=== PATIENT | female | born 1965 | race Caucasian/White ===

== ENCOUNTER → 2018-12-19 08:26 | Outpatient (CLI) | payer OTHER, SELFPAY ==
[2018-12-19 10:10] LABS: Cholesterol 244 mg/dL (140-199); HDL Cholesterol 54 mg/dL (40-60); LDL Cholesterol Calculated 145 mg/dL (<100); Triglycerides 223 mg/dL (35-150)
== END ==
PROVIDERS: PCP Physician Assistant; Visit Provider Physician Assistant
DX: Z13.220 Encounter for screening for lipoid disorders (principal); Z13.6 Encounter for screening for cardiovascular disorders; Z82.49 Family history of ischemic heart disease and other diseases of the circulatory system
CPT/HCPCS: 36415; 80061

== ENCOUNTER → 2019-06-12 07:49 | Outpatient (CLI) | payer OTHER, SELFPAY | PROVIDERS: PCP Physician Assistant; Visit Provider Physician Assistant | DX: E78.2 Mixed hyperlipidemia (principal) | CPT/HCPCS: 36415 ==

== ENCOUNTER → 2019-09-19 12:10 | Outpatient (CLI) | payer OTHER, SELFPAY ==
[2019-09-25 09:43] LABS: Fecal Immunochemical Test NOT DETECTED (NOT DETECTED)
== END ==
PROVIDERS: PCP Physician Assistant; Visit Provider Physician Assistant
DX: Z12.11 Encounter for screening for malignant neoplasm of colon (principal)
CPT/HCPCS: 82274

== ENCOUNTER 2021-05-01 07:47 | Emergency (ER) | payer OTHER, SELFPAY ==
--- NOTE | 2021-05-01 07:48 | DI.RAD.S_ITS ---
PROCEDURE: XR CHEST 1V INDICATIONS: chest pain TECHNIQUE: One view of the chest was acquired. COMPARISON: None. FINDINGS: Surgical changes and devices: None. Lungs and pleura: Lungs are clear. No pleural effusions or pneumothorax. Mediastinum: Mediastinal contours appear normal. Heart size is normal. Bones and chest wall: No suspicious bony lesions. Overlying soft tissues appear unremarkable. IMPRESSION: No acute disease. Dictated by: Lambert Chaudhary M.D. on 05/01/2021 at 8:25 Approved by: Lambert Chaudhary M.D. on 05/01/2021 at 8:42
[2021-05-01 08:01] VITALS: BP 159/106; PULSE 68; RESP 16; TEMP 36.3; O2SAT 99; BMI 24.7
--- NOTE | 2021-05-01 08:07 | ED_ITS ---
HPI - Chest Pain General Chief Complaint: Chest Pain Stated Complaint: pain in left arm that goes down to hand, up neck Time Seen by Provider: 05/01/21 08:07 Source: patient and other (Walk-in clinic) Mode of arrival: Wheelchair Limitations: no limitations History of Present Illness HPI narrative: This is a 55-year-old female comes emergency department with complaint of pain in her left arm that goes down her hand and upper neck to. Patient states it started last night about 930. She states that it started at the site of her COVID injection and she started to have an achy sensation that then radiated down her arm and upper neck. She had her COVID vaccination 2 or 3 weeks ago. She had some mild achiness at the site immediately afterwards but that had resolved and she had had any residual symptoms. She denies any radiation to her chest, between her shoulder blades or abdomen. She denies any chest pressure, no shortness of breath. No diaphoresis. No nausea or vomiting. She denies any numbness, weakness or tingling. She denies any headache. No vision changes. No numbness tingling or weakness in any other extremities. She does appreciate that the muscle feels slightly weaker on the left than the right but states that she is able to use it fully. She tried some ibuprofen which was not helpful. She tried heat which was very helpful and ice which made it significantly worse. Patient does not take any other daily medications. She has had a sinus surgery in the past. Patient has allergies to sulfa, no tobacco, rare alcohol, no illicit. Her primary care physician was Erica Hernandez. Patient states her parents have a cardiac history her mom had a heart attack in her mid 70s, her paternal grandfather in his 50s of an SD and her father had 3 MIs the last 1 was in his 80s she is unsure of the onset of the 1st. She has not had similar symptoms in the past. Related Data Home Medications Medication Instructions Recorded Confirmed ibuprofen 200 mg tablet 400 mg PO PRN PRN #0 01/19/18 05/01/21 Previous Rx's Medication Instructions Recorded gabapentin 300 mg capsule 300 mg PO TID #30 cap 05/01/21 Allergies Allergy/AdvReac Type Severity Reaction Status Date / Time Sulfa (Sulfonamide AdvReac Mild SWOLLEN Verified 05/01/21 07:31 Antibiotics) EYELIDS [SULFA (SULFONAMIDE ANTIBIOTICS)] Review of Systems Review of Systems ROS Unobtainable: All systems reviewed & are unremarkable except as noted in HPI and below Patient History Family History Father Age: 83 Heart disease Mother Age: 82 Diabetes mellitus, type 2 Social History Smoking Status: Never smoker second hand exposure: No alcohol intake: current (Advocat only on special occasions.) substance use type: does not use Smoking Status: Never smoker Exam Narrative Exam Narrative: GENERAL: Alert and oriented x three, well-nourished female in mild distress. HEENT: Head normocephalic, atraumatic, EOMI, pupils reactive, face symmetric, moist mucous membranes NECK: Supple, full range of motion, patient has no cervical, thoracic or vertebral tenderness. Patient does have negative Spurling's with increase in symptoms in the left arm with head rotated right an extended period CARDIOVASCULAR: Regular rate and rhythm without murmurs, rubs or gallops. No JVD. RESPIRATORY: Breath sounds equal bilaterally, no wheezes rales or rhonchi. ABDOMEN: Soft, nontender. Normoactive bowel sounds all 4 quadrants. No guarding or rebound, rigidity, no mass : No CVA tenderness EXTREMITIES: Normal range of motion, no clubbing or edema. Neurovascularly intact. Patient has equal squeeze bilaterally, 5/5 muscle strength. 2/4 DTRs in upper extremities. 2+ radial pulses bilaterally. Patient does not have any skin changes. No rashes, no swelling. Patient is nontender to touch. NEUROLOGICAL: Cranial nerves II through XII grossly intact. Moving all extremities SKIN: Warm, dry, no petechiae, no rashes or lesions. Initial Vital Signs Initial Vital Signs: Vital Signs Temperature 97.4 F L 05/01/21 08:01 Pulse Rate 68 05/01/21 08:01 Respiratory Rate 16 05/01/21 08:01 Blood Pressure 159/106 H 05/01/21 08:01 Pulse Oximetry 99 05/01/21 08:01 Scores HEART Score Heart Score history: Moderately Suspicious Heart Score EKG: Normal Heart Score Age: 45-64 years old Heart Score risk factors: 1-2 risk factors Heart Score troponin: < or = to normal limit Heart Score Total: 3 Course Orders Ordered: ED Orders 05/01/21 07:48 XR chest 1V Stat Complete Blood Count AUTO DIFF Stat Comprehensive Metabolic Panel Stat Lipase Stat Troponin & CK Cardiac Panel Stat EKG-12 Lead Stat Vital Signs Vital signs: Vital Signs - 8 hr 05/01/21 08:01 Temperature 97.4 F L Pulse Rate 68 Respiratory Rate 16 Blood Pressure 159/106 H Pulse Oximetry 99 MDM - Chest Pain Lab Data Result diagrams: 05/01/21 08:14 05/01/21 08:14 Labs: Lab Results 05/01/21 05/01/21 Range/Units 08:14 08:14 WBC 5.8 (4.5-11.0) X10^3/uL RBC 4.64 (4.0-5.2) X10^6/uL Hgb 13.6 (12.0-16.0) g/dL Hct 41.1 (36-46) % MCV 88.5 (80-100) fL MCH 29.2 (26-34) PG MCHC 33.0 (30-36) % RDW 14.1 (11.6-14.8) % Plt Count 263 (150-400) X10^3/uL Neut % (Auto) 57.2 (50-75) % Lymph % (Auto) 28.9 (25-40) % [place] % (Auto) 9.9 (3-14) % Eos % (Auto) 3.0 (2-4) % Baso % (Auto) 1.0 (0-2) % Neut # (Auto) 3300 (1305-1461) /uL Lymph # (Auto) 1700 (9943-1136) /uL [place] # (Auto) 600 (0-900) /uL Eos # (Auto) 200 (0-450) /uL Baso # (Auto) 100 (0-100) /uL Sodium 140 (137-145) mmol/L Potassium 3.9 (3.4-5.1) mmol/L Chloride 105 (98-107) mmol/L Carbon Dioxide 28 (22-32) mmol/L BUN 15 (7-17) mg/dL Creatinine 0.83 (0.52-1.04) mg/dL Estimated GFR > 60.0 (>60) mL/min BUN/Creatinine Ratio 18.1 (6-22) Glucose 120 H (70-100) mg/dL Calcium 9.8 (8.4-10.2) mg/dL Total Bilirubin 0.6 (0.2-1.3) mg/dL AST 34 (14-36) IU/L ALT 29 (<35) IU/L Alkaline Phosphatase 98 (38-126) U/L Total Creatine Kinase 120 (30-135) U/L CK-MB (CK-2) 1.05 (<2.37) ng/mL CK-MB (CK-2) Rel Index 0.9 L (1.5-5.0) % Troponin I < 0.012 (0.01-0.034) ng/mL Total Protein 8.4 H (6.3-8.2) g/dL Albumin 4.6 (3.5-5.0) g/dL Globulin 3.8 (1.7-4.1) g/dL Albumin/Globulin Ratio 1.2 (1.0-2.8) Lipase 187 (23-300) U/L Imaging Data Chest x-ray: Radiologist's Impression: [address] [id number] ReportSigned Patient: Rachael Singh CMR#: [id number]: 1965Acct:[id number]/Sex: 55 / FDate of Service: 05/01/21Loc: EDAccession Number: [id number] Procedure: XR chest 1V Ordering Provider: Pilar Hubbard D.O. PROCEDURE: XR CHEST 1V INDICATIONS: chest pain TECHNIQUE: One view of the chest was acquired. COMPARISON: None. FINDINGS: Surgical changes and devices: None. Lungs and pleura: Lungs are clear. No pleural effusions or pneumothorax. Mediastinum: Mediastinal contours appear normal. Heart size is normal. Bones and chest wall: No suspicious bony lesions. Overlying soft tissues appear unremarkable. IMPRESSION: No acute disease. Dictated by: Lambert Chaudhary M.D. on 05/01/2021 at 8:25 Approved by: Lambert Chaudhary M.D. on 05/01/2021 at 8:42 ECG Data Attestation: I personally reviewed and interpreted this ECG as follows: Prior ECG tracings: not available for review Interpretation: Sinus rhythm rate of 64, MS and 198, QRS 82 and QTC of 412. No ST elevation or depression. Patient does not have prior EKG available for review. MDM Narrative Medical decision making narrative: This is a 55-year-old female sent from the walk-in clinic for left upper extremity pain going all which her hand upper neck that started acutely with no recent injury. Patient does have increased pain with Spurling's maneuver. Patient does have some risk factors with family history but no other known cardiac risk factors. She has had almost 12 hours of symptoms with no acute EKG changes appreciated and negative troponin and her symptoms seem more consistent with radiculopathy. Patient's chest x-ray as well as lab work do not show any acute changes and appear reassuring. Patient does note that the pain started close to the area where she had her COVID vaccination, unclear if there is any changes related to this but her CPK is not significantly elevated suggesting of rhabdo or other change. Patient was encouraged to follow up with the primary care office she used to follow with. We discussed she can try gabapentin for pain and do ibuprofen and/or Tylenol with this. We also discussed return precautions and signs and symptoms to watch for. Discharge Plan Departure Patient Disposition: Home Clinical Impression: Radiculopathy affecting upper extremity Instructions: DI for Cervical Radiculopathy Activity Restrictions/Additional Instructions: Follow-up with your physician in the next week for recheck. Call for an appointment. You may take gabapentin 1 tablet every 8 hours as needed for pain, this medication can be titrated upwards, discussed with her physician and they can help you with this. You may take this with ibuprofen up to 600 mg every 6 hours as needed and/or tylenol to a 1000 mg every 8 hours as needed Prescription sent to [facility] in [place]. I suspect today that you having impingement of the nerve from your neck causing your symptoms in your upper extremity. Please return for fevers, lightheadedness or passing out, new chest pain, shortness of breath, persistent vomiting, loss of sensation, inability to use your arm, loss of thread reeler or if you are dropping objects, new color changes to your upper extremity or other new or concerning symptoms. Prescriptions: New gabapentin 300 mg capsule 300 mg PO TID Qty: 30 RF: 0 No Action ibuprofen 200 MG tablet 400 mg PO PRN PRNQty: 0 RF: 0
[2021-05-01 08:18] LABS: Add Manual Diff / Slide Review NO; Basophils Absolute Auto 100 /uL (0-100); Eosinophils Absolute Auto 200 /uL (0-450); Hematocrit 41.1 % (36-46); Hemoglobin 13.6 g/dL (12.0-16.0); Lymphocytes Absolute Auto 1700 /uL (1100-4500); Lymphocytes Percent Auto 28.9 % (25-40); Mean Corpuscular Hemoglobin 29.2 PG (26-34); Mean Corpuscular Volume 88.5 fL (80-100); Monocytes Absolute Auto 600 /uL (0-900); Monocytes Percent Auto 9.9 % (3-14); Neutrophils Absolute Auto 3300 /uL (1500-7000); Neutrophils Percent Auto 57.2 % (50-75); Platelet Count 263 X10^3/uL (150-400); Red Blood Cell Count 4.64 X10^6/uL (4.0-5.2); Red Cell Distribution Width 14.1 % (11.6-14.8); White Blood Cell Count 5.8 X10^3/uL (4.5-11.0)
[2021-05-01 08:29] LABS: Alanine Aminotransferase 29 IU/L (<35); Albumin 4.6 g/dL (3.5-5.0); Albumin Globulin Ratio 1.2 (1.0-2.8); Alkaline Phosphatase 98 U/L (38-126); Aspartate Aminotransferase 34 IU/L (14-36); BUN Creatinine Ratio 18.1 (6-22); Bilirubin Total 0.6 mg/dL (0.2-1.3); Blood Urea Nitrogen 15 mg/dL (7-17); Calcium 9.8 mg/dL (8.4-10.2); Carbon Dioxide 28 mmol/L (22-32); Chloride 105 mmol/L (98-107); Creatine Kinase 120 U/L (30-135); Estimated Glomerular Filt Rate > 60.0 mL/min (>60); Globulin 3.8 g/dL (1.7-4.1); Glucose 120 mg/dL (70-100); HEMOLYSIS < 15 (0-50); Lipase 187 U/L (23-300); Potassium 3.9 mmol/L (3.4-5.1); Sodium 140 mmol/L (137-145); Total Protein 8.4 g/dL (6.3-8.2)
[2021-05-01 08:40] LABS: Troponin I < 0.012 ng/mL (0.01-0.034)
[2021-05-01 08:44] LABS: CKMB % Relative Index 0.9 % (1.5-5.0); Creatine Kinase MB 1.05 ng/mL (<2.37)
[2021-05-01 09:04] VITALS: BP 134/83; PULSE 64; RESP 16; O2SAT 99
== END 2021-05-01 09:13 | disposition home or self-care (01) ==
PROVIDERS: Emergency Provider Emergency Medicine
DX: M54.12 Radiculopathy, cervical region (principal); R07.9 Chest pain, unspecified
CPT/HCPCS: 36415; 71045; 80053; 82550; 82553; 83690; 84484; 85025; 93005; 99284